=== PATIENT | female | born 1965 | race African-American/Black ===

== ENCOUNTER → 2016-12-06 | Outpatient (CLI) | payer OTHER ==
--- NOTE | 2016-12-06 13:10 | WOMENS IMAGING REPORT ---
EXAM DESCRIPTION: LEFT DIAGNOSTIC MAMMO W/CAD COMPLETED DATE/TIME: 12/06/2016 9:16 am REASON FOR STUDY: ABNORMAL MAMMO R92.8 OTH ABN AND INCONCLUSIVE FINDINGS ON DX IMAGING OF CASEY COMPARISON: Bilateral screening 10/13/2016 TECHNIQUE: Magnification craniocaudal and mediolateral oblique images of the breast recorded with di gital acquisition. Left breast 90 mediolateral view LIMITATIONS: None. FINDINGS: BREAST: Left MASSES: No suspicious masses. CALCIFICATIONS: There are 2 groups of punctate calcifications in the left breast, similar in size sha pe and density. 1 group of calcifications is left breast 6 o'clock position 5 cm from the nipple, th e other group of calcifications is laterally at about the 3 to 4 o'clock position 6 cm from the nippl e. These are indeterminate for malignancy. Because these clusters are very similar in characteristi cs, stereotactic biopsy of either the 6 o'clock position or 3 to 4 o'clock position calcifications is recommended. ARCHITECTURAL DISTORTION: None. DEVELOPING DENSITY: None. ASYMMETRY: None noted. OTHER: No other significant findings. Read with the assistance of CAD. .[facility] - R2 Cenova Version 1.3 .[facility] - R2 Cenova Version 1.3 .[facility] - R2 Cenova Version 2.4 .[facility] - R2 Cenova Version 2.4 .[facility] - R2 Color Artist Version 9.2 Stereotactic biopsy was discussed with the patient at the time of mammography. She understands the c alcifications require biopsy and she is amenable to stereotactic core biopsy left breast. IMPRESSION: Left breast microcalcifications indeterminate for malignancy. BREAST DENSITY: b. There are scattered areas of fibroglandular density. BIRAD: 4 Suspicious. Biopsy should be considered. RECOMMENDATION: RECOMMENDED FOLLOW UP: Left breast stereotactic biopsy recommended for calcification s SPECIFIC INTERVENTION/IMAGING/CONSULTATION RECOMMENDED:As above COMMUNICATION:These findings were discussed with the patient and she is agreeable to biopsy. These r esults were also discussed with ALEXEY Tomas 1300 hours 12/06/2016. COMMENT: The patient has been notified of the results by letter per MQSA requirements. Additional no tification policies are in place for contacting patient with suspicious or incomplete findings. Quality ID #[id number]: The [employer] recommends an annual screening mammogram for women aged 40 years or over. This facility utilizes a reminder system to ensure that all patients receive reminder letters, and/or direct phone calls for appointments. This includes reminders for routine scr eening mammograms, diagnostic mammograms, or other Breast Imaging Interventions when appropriate. Th is patient will be placed in the appropriate reminder system. The [employer] (ACR) has developed recommendations for screening MRI of the breast s in certain patient populations, to be used in conjunction with mammography. Breast MRI surveillanc e may be appropriate for women with more than 20% lifetime risk of developing breast cancer as deter mined by genetic testing, significant family history of the disease, or history of mantle radiation f or Hodgkins Disease. ACR Practice Guidelines 2008. TECHNICAL DOCUMENTATION: FINDING NUMBER: (1) ASSESSMENT: (1) JOB ID: [id number] [employer]- All Rights Reserved
== END ==
LOC: WI 08:02
PROVIDERS: ATTEND Physician Assistant
DX: R92.8 Other abnormal and inconclusive findings on diagnostic imaging of breast (principal)
CPT/HCPCS: G0206-52

== ENCOUNTER → 2016-12-11 | Outpatient (CLI) | payer OTHER ==
--- NOTE | 2016-12-11 17:03 | RADIOLOGY REPORT (SQ) ---
EXAM DESCRIPTION: CHEST PA/LATERAL COMPLETED DATE/TIME: 12/11/2016 4:52 pm REASON FOR STUDY: CHEST PAIN COMPARISON: None. EXAM PARAMETERS: NUMBER OF VIEWS: two views TECHNIQUE: Digital Frontal and Lateral radiographic views of the chest acquired. RADIATION DOSE: NA LIMITATIONS: none FINDINGS: LUNGS AND PLEURA: No opacities, masses or pneumothorax. No pleural effusion. MEDIASTINUM AND HILAR STRUCTURES: No masses or contour abnormalities. HEART AND VASCULAR STRUCTURES: Heart normal size. No evidence for failure. BONES: No acute findings. HARDWARE: None in the chest. OTHER: No other significant finding. IMPRESSION: NO SIGNIFICANT RADIOGRAPHIC FINDING IN THE CHEST. TECHNICAL DOCUMENTATION: JOB ID: [id number] [employer]- All Rights Reserved
== END ==
LOC: OD 16:39
PROVIDERS: ATTEND Physician Assistant
DX: R07.9 Chest pain, unspecified (principal)
CPT/HCPCS: 71020

== ENCOUNTER → 2016-12-19 | Day surgery (SDC) | payer OTHER ==
[~2016-12-19] MED LIST: LIDOCAINE 1%/EPINEPHRINE INJ 20 ML VIAL ONE
--- NOTE | 2016-12-29 17:20 | RADIOLOGY REPORT (SQ) ---
EXAM DESCRIPTION: STEREO BREAST BX; LEFT DIG DX MAMMO NO CHG COMPLETED DATE/TIME: 12/19/2016 10:55 am REASON FOR STUDY: OTHER ABNORMAL AND INCONCLUSIVE FINDINGS ON DIAGNOSTIC IMAGING OF BREAST; LEFT CASEY AST MICROCALCIFICATIONS; R92.8 OTH ABN AND INCONCLUSIVE FINDINGS ON DX IMAGING OF CASEY COMPARISON: MAMMOGRAMS 10/13/2016, [facility] Diagnostic mammograms 12/06/2016 here TECHNIQUE: Vacuum-assisted stereotactic-guided biopsy of the lesion in the left breast. Serial progr ess stereotactic and single digital images acquired. PROCEDURE: The procedure was discussed with the patient, including possible complications such as bleeding, infection, nondiagnostic sample or possible findings such as atypical ductal hyperplasia wh ich would require additional surgery. Possible clip placement was explained. The patient agreed t o the procedure. The patient was placed prone on the stereotactic table. The calcifications of concern in the retroa reolar region in the breast was localized stereotactically. The skin of the breast was prepped in st erile fashion. Superficial and deep local anesthesia was provided. A small incision was made in e skin and the biopsy probe was advanced to the target. Using the vacuum-assisted core biopsy device, multiple core specimens were obtained. Continuous low dose infusion of local anesthesia was used during the procedure. A specimen radiograph was obtained. The radiograph demonstrated calcifications of concern in the bio psy tissue. Using [id number]-tg-xkyktkjc technique a pellet clip was deployed at the biopsy site. Mammographic image confirmed presence of the clip. The probe was then removed and hemostasis obtained with manua l compression. A compression bandage was applied. Postoperative instructions were explained to e patient. POST-PROCEDURE TWO VIEW DIGITAL MAMMOGRAM: An additional two view mammogram was recorded in the [facility] mammographic suite. Marker clip is present at the biopsy site. Please note that there are 2 ot her clusters of microcalcifications which were similar to the biopsied calcifications, in the deep ce ntral breast and lateral left breast 3 o'clock position LIMITATIONS: None. FINDINGS: PATHOLOGY: Ductal carcinoma in situ, low grade solid tiny with microcalcifications. Negat porfirio for invasive malignancy. CONCORDANT: Yes. POST PROCEDURE MAMMOGRAMS FOR MARKER PLACEMENT: Yes IMPRESSION: SUCCESSFUL STEREOTACTIC-GUIDED BIOPSY OF THE LESION IN THE LEFT BREAST. BIOPSY RESULTS ARE CONCORDANT WITH IMAGING FINDINGS. FINDINGS WERE DISCUSSED WITH LEVY GAMING, Sunday 7, 1300 HOURS FOLLOW-UP: APPROPRIATE FOLLOWUP FOR BIOPSY RESULTS OF MALIGNANCY. NOTIFICATION: FINDINGS WERE DISCUSSED WITH LEVYJORDAN GAMING, Sunday12/22/2016, 1300 HOURS BI-RADS 6, KNOWN MALIGNANCY. APPROPRIATE ACTION SHOULD BE TAKEN COMMENT: Patient medication list reviewed: Yes- Quality ID# [id number]:Eligible professional attests to doc umenting in the medical record they obtained, updated, or reviewed the patient's current medications. TECHNICAL DOCUMENTATION: JOB ID: [id number] [employer]- All Rights Reserved
== END ==
LOC: RAD 08:38
PROVIDERS: ATTEND Physician Assistant
PROC: 0HBT3ZX Excision of Right Breast, Percutaneous Approach, Diagnostic (ICD-10-PCS; principal; 2016-12-19)
DX: D05.12 Intraductal carcinoma in situ of left breast (principal); R92.0 Mammographic microcalcification found on diagnostic imaging of breast; M19.90 Unspecified osteoarthritis, unspecified site; E03.9 Hypothyroidism, unspecified; E78.5 Hyperlipidemia, unspecified; E11.8 Type 2 diabetes mellitus with unspecified complications; R07.9 Chest pain, unspecified
CPT/HCPCS: 88342 ×2; 88341 ×2; 88305 ×2; 19081; J3490

== ENCOUNTER → 2017-01-05 | Outpatient (CLI) | payer OTHER ==
--- NOTE | 2017-01-05 13:15 | RADIOLOGY REPORT (SQ) ---
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 RENAL FUNCTION: GFR > 60. TECHNIQUE: MR imaging performed with a dedicated breast coil. Pre contrast T1 and T2 weighted images . Pre contrast and post contrast enhanced T1 weighted images with fat saturation. Subtraction images, 3D thick and thin MIPS, and kinetic analysis performed on an independent workstat ion. (Fresh Direct workstation) Magnet strength: 1.5 T LIMITATIONS: Patient vomited after the contrast bolus. Initial post contrasted images were obtained about 3 minutes after the contrast infusion was completed FINDINGS: BREAST DENSITY: b. There are scattered areas of fibroglandular density. BACKGROUND PARENCHYMAL ENHANCEMENT:Minimal. RIGHT BREAST: There is a stereotactic biopsy clip in the left breast 6 o'clock position, about 4 to 5 cm from the nipple. Biopsy at this site yielded a diagnosis of ductal carcinoma in situ. No enhan cing or suspicious masses. No clumped, regional/segmental ductal enhancement. However, there was a sub optimal contrast bolus. Few benign tiny less than 7 mm breast parenchymal cysts are present CHEST WALL: Normal tissue planes. No abnormal internal mammary nodes. AXILLA: Normal axillary and retro-pectoral nodes. LEFT BREAST:No enhancing or suspicious masses. No clumped, regional/segmental ductal enhancement. However, there was a suboptimal contrast bolus. Few benign less than 5 mm breast parenchymal cysts a re present. CHEST WALL: Normal tissue planes. No abnormal internal mammary nodes. AXILLA: Normal axillary and retro-pectoral nodes. OTHER:No identified liver, bone, or lung lesions. No other significant incidental findings. IMPRESSION: No MRI evidence of invasive breast malignancy for significant axillary adenopathy. BIRAD: RIGHT BREAST: 6 Known biopsy-proven malignancy. Appropriate action should be taken. LEFT BREAST: 2 Benign findings. RECOMMENDATION: RECOMMENDED FOLLOW-UP: As per Dr. Escobar TECHNICAL DOCUMENTATION: JOB ID: [id number]- All Rights Reserved
== END ==
LOC: RAD 09:58
PROVIDERS: ATTEND Surgery
DX: D05.12 Intraductal carcinoma in situ of left breast (principal)
CPT/HCPCS: 82565; A9576; C8906; 77059

== ENCOUNTER → 2017-01-17 | Day surgery (SDC) | payer OTHER ==
[~2017-01-17] MED LIST changes: +LIDOCAINE 2% INJ (20 MG/ML) 20 ML MDV ONE
--- NOTE | 2017-01-23 17:36 | RADIOLOGY REPORT (SQ) ---
EXAM DESCRIPTION: STEREO BREAST BX; LEFT DIG DX MAMMO NO CHG COMPLETED DATE/TIME: 01/17/2017 12:47 pm; 01/17/2017 12:48 pm REASON FOR STUDY: INTRADUCTAL CARCINOMA IN SITU OF BREAST; LEFT BREAST POST STEREO D05.12 INTRADUCT AL CARCINOMA IN SITU OF LEFT BREAST COMPARISON: Previous stereotactic biopsy left breast 12/19/2016 TECHNIQUE: Vacuum-assisted stereotactic-guided biopsy of the calcifications laterally in the left br east. Serial progress stereotactic and single digital images acquired. PROCEDURE: The procedure was discussed with the patient, including possible complications such as bleeding, infection, nondiagnostic sample or possible findings such as atypical ductal hyperplasia wh ich would require additional surgery. Possible clip placement was explained. The patient agreed t o the procedure. The patient was placed prone on the stereotactic table. The lesion in the breast was localized ster eotactically. The skin of the breast was prepped in sterile fashion. Superficial and deep local an esthesia was provided. A small incision was made in the skin and the biopsy probe was advanced to t he target. Using the vacuum-assisted core biopsy device, multiple core specimens were obtained. Continuous low dose infusion of local anesthesia was used during the procedure. A specimen radiograph was obtained. The radiograph demonstrated calcifications of concern in the bio psy tissue. Using htckiyre-po-fkklospw technique a pellet clip was deployed at the biopsy site. Mammographic image confirmed presence of the clip. The probe was then removed and hemostasis obtained with manua l compression. A compression bandage was applied. Postoperative instructions were explained to th e patient. POST-PROCEDURE TWO VIEW DIGITAL MAMMOGRAM: An additional two view mammogram was recorded in the [facility] mammographic suite. Marker clip is present at the biopsy site. LIMITATIONS: None. FINDINGS: PATHOLOGY: Today's biopsy in the left lateral breast for microcalcification yields a benig n diagnosis CONCORDANT: Yes. POST PROCEDURE MAMMOGRAMS FOR MARKER PLACEMENT: Yes IMPRESSION: SUCCESSFUL STEREOTACTIC-GUIDED BIOPSY OF THE LESION IN THE LEFT BREAST. BIOPSY RESULTS ARE CONCORDANT WITH IMAGING FINDINGS. Biopsy of microcalcifications laterally in the left breast yie lded a benign diagnosis FOLLOW-UP: As per Dr. Escobar. Lumpectomy at the 6 o'clock position, prior stereotactic biopsy left breast 12/19/2016 yielded a diagnosis of DCIS NOTIFICATION: THE PATIENT HAS BEEN PERSONALLY NOTIFIED OF THE RESULTS BY THE BREAST INTERVENTIONAL TE AM. ADDITIONAL INTERVENTION, IF NEEDED, HAS BEEN SCHEDULED. COMMENT: Patient medication list reviewed: Yes- Quality ID# [id number]:Eligible professional attests to doc umenting in the medical record they obtained, updated, or reviewed the patient's current medications. TECHNICAL DOCUMENTATION: JOB ID: [id number] [employer]- All Rights Reserved
== END ==
LOC: RAD 10:12
PROVIDERS: ATTEND Surgery
PROC: 0HBU3ZX Excision of Left Breast, Percutaneous Approach, Diagnostic (ICD-10-PCS; principal; 2017-01-17)
DX: D05.12 Intraductal carcinoma in situ of left breast (principal)
CPT/HCPCS: 88305 ×2; 19081; J3490

== ENCOUNTER 2017-01-24 08:06 | Day surgery (SDC) | payer OTHER ==
[~2017-01-24 08:06] MED LIST changes: +CEFAZOLIN 1 GM/D5W RTU 1 GM/50 ML RTUPB IV PRN; -LIDOCAINE 1%/EPINEPHRINE INJ 20 ML VIAL ONE; -LIDOCAINE 2% INJ (20 MG/ML) 20 ML MDV ONE; +NORMAL SALINE 1000 ML 1,000 ML IV PRN
[2017-01-24] MEDS ORDERED: ONDANSETRON HCL INJ/PF 4 MG/2 ML SDV ONE (10:25)
[2017-01-24] MEDS ORDERED: SUCCINYLCHOLINE CHLORIDE INJ 200 MG/10 ML VIAL ONE (10:25)
[2017-01-24] MEDS ORDERED: GLYCOPYRROLATE INJ 0.4 MG/2 ML VIAL ONE (10:25)
[2017-01-24] MEDS ORDERED: DEXAMETHASONE SOD PHOSPHATE INJ 4 MG/1 ML VIAL ONE (10:25)
[2017-01-24] MEDS ORDERED: METOCLOPRAMIDE HCL INJ/PF 10 MG/2 ML SDV ONE (10:25)
[2017-01-24] MEDS ORDERED: LIDOCAINE 2% INJ-PF (20 MG/ML) 2 ML AMPUL ONE (10:25)
[2017-01-24] MEDS ORDERED: NEOSTIGMINE METHYLSULFATE 10 MG/10 ML VIAL ONE (10:25)
[2017-01-24] MEDS ORDERED: KETOROLAC TROMETHAMINE 60 MG/2 ML SDV ONE (10:25)
[2017-01-24] MEDS ORDERED: ROCURONIUM BROMIDE INJ 50 MG/5 ML VIAL IV ONE (10:25)
--- NOTE | 2017-01-24 11:46 | PDOC PROGRESS REPORT ---
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 Patient interviewed and examined formal consult to follow. Note that the patient has no coronary artery disease, and in the past has had noncardiac chest pain.. She has a history of underactive thyroid not on any medication, and is a prediabetic. There is no history of congestive heart failure. Her EKG is within normal limits. Her echo was normal with trace physiological tricuspid regurgitation and trace physiological mitral regurgitation with normal left ventricular wall motion wall thickness chamber size and ejection fraction of 65%. She has normal right ventricular systolic pressure of 22 mmHg. Impression: 1 Prediabetes. 2. Underactive thyroid not on replacement. 3. Intraductal carcinoma in situ of left breast for surgery 4. Preoperative cardiac risk assessment for this breast surgery. The patient will be at mild/acceptable cardiac risk for this procedure under general anesthesia. This has been discussed with the patient the echo and EKG findings have also been discussed with the patient. We will follow with you formal consult to follow. Thank you end of dictation.
[2017-01-24 12:17] LABS: HEMATOCRIT 40.2 % (36.0-47.0); HGB HCT DIFFERENCE 1.8; MEAN CORPUSCULAR HGB CONC 34.7 g/dL (32.0-36.0); MEAN CORPUSCULAR VOLUME 89 fl (80-97); RED BLOOD COUNT 4.51 10^6/uL (3.72-5.28); RED CELL DISTRIBUTION WIDTH 12.9 % (11.5-14.0); WHITE BLOOD COUNT 9.9 10^3/uL (4.0-10.5)
[2017-01-24] MEDS ORDERED: LIDOCAINE 2% INJ (20 MG/ML) 20 ML MDV ONE (12:58)
--- NOTE | 2017-01-24 13:19 | RADIOLOGY REPORT (SQ) ---
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 RADIONUCLIDE AND DOSE: 126 microcuries TC-99mtilmanocept - Lymph[employer]ek. The route of agent administration: Subcutaneous in the skin. TECHNIQUE: The skin of the left breast was prepped in sterile fashion. The radiopharmaceutical was administered in equally divided doses in the periareolar breast. LIMITATIONS: None. FINDINGS: Images demonstrate activity at the injection site. There is also a focal area of activity in the left axilla consistent with sentinel lymph node. IMPRESSION: ADMINISTRATION OF RADIOPHARMACEUTICAL FOR SENTINEL LYMPH NODE EVALUATION. TECHNICAL DOCUMENTATION: JOB ID: [id number] [employer]- All Rights Reserved
--- NOTE | 2017-01-24 13:22 | EKG REPORT ---
SEVERITY:- NORMAL ECG - SINUS RHYTHM : Confirmed by: Madi Ball MD 24-Jan-2017 13:21:37
[2017-01-24] MEDS ORDERED: LIDOCAINE 4% TRANSPARENT DRESSING 5 GM KIT TP PRN (13:57)
[2017-01-24] MEDS ORDERED: MICROFIBRILLAR COLLAGEN 1 GM PACK ONE (14:24)
[2017-01-24] MEDS ORDERED: LIDOCAINE 1%/EPINEPHRINE INJ 20 ML VIAL ONE ×2 (14:24)
[2017-01-24] MEDS ORDERED: EPHEDRINE SULFATE INJ 50 MG/1 ML AMPULE ONE (14:44)
[2017-01-24] MEDS ORDERED: FENTANYL CITRATE INJ/PF 100 MCG/2 ML AMPUL ONE (14:44)
[2017-01-24] MEDS ORDERED: MIDAZOLAM 2 MG/2 ML INJ ONE (14:44)
[2017-01-24] MEDS ORDERED: DEXMEDETOMIDINE INJ 80 MCG/20 ML VIAL IV ONE (14:45)
[2017-01-24] MEDS ORDERED: HYDROMORPHONE HCL INJ/PF 2 MG/ML AMPULE ONE (14:45)
[2017-01-24] MEDS ORDERED: ACETAMINOPHEN 100 ML IV ONE (14:45)
[2017-01-24] MEDS ORDERED: PROPOFOL INJ 200 MG/20 ML VIAL IV ONE (14:45)
[2017-01-24] MEDS ORDERED: METHYLENE BLUE 50 MG/10 ML AMPULE ONE (14:56)
--- NOTE | 2017-01-24 16:26 | Operative Report ---
Operative Report DATE OF SURGERY: 01/24/17 PREOPERATIVE DIAGNOSIS: DCIS localized to inferior aspect left breast, 5 cm from nipple POSTOPERATIVE DIAGNOSIS: Same OPERATION: 1. Needle localized left open breast biopsy for DCIS, 6 o'clock position, 4 cm from the nipple. 2. [place] lymph node biopsy left axilla 1 using dual mapping technique SURGEON: DARREL THAKKAR 1ST HUMAN RELATIONS PROFESSOR: BRIAN SAM ANESTHESIA: GA TISSUE REMOVED OR ALTERED: Open left breast biopsy with needle and wire, dumbbell-shaped clip marker and microcalcifications; sentinel lymph node cluster left axilla COMPLICATIONS: None ESTIMATED BLOOD LOSS: Scant INTRAOPERATIVE FINDINGS: See below PROCEDURE: The patient was initially brought into ambulatory surgery, then taken to the radiology suite where she underwent lymphoscintigraphy of the left breast and axilla. There was intermediate strength uptake in the left axilla consistent with successful node mapping. The patient had known DCIS left breast 6 o'clock position following stereotactic biopsy with the dumbbell-shaped clip marker placement; the patient subsequently underwent stereotactic biopsy with a cylindrical marker placement of a more cephalad and laterally identified cluster of microcalcifications which revealed no evidence of DCIS, benign findings only. Therefore we elected to proceed with needle localized open biopsy of the known DCIS in the inferior aspect of the patient's left breast 6 o'clock position approximately 4 cm from the nipple. This was discussed with Dr. Perez, radiologist as well as Dr. Good, radiologist. The patient underwent needle localization with wire placement, and then was taken to the main operating room where general anesthesia was induced. Left arm was abducted, and the left breast exposed. Needle and wire were clipped 1 cm beyond the skin edge. We now proceeded to inject 2-1/2 cc of full-strength methylene blue into the patient's left breast, air areolar border, 2 o'clock position, intradermal. The left breast was massaged, for 5 minutes, then the left breast and axilla prepped and draped in sterile fashion. Surgical plan and surgical timeout were conducted. We proceeded with left breast lumpectomy AKA breast conserving surgery first. The localized needle and wire into the patient's breast from the anterior lateral position, with the tip oriented posteriorly in relation to the clip marker. We therefore planned a 4-1/2-5 cm incision, in for area volar, oriented horizontally skin was anesthetized 1% plain lidocaine. Incision was made as described, incorporating the needle and wire in the lateral aspect of the incision. A moderate sized lumpectomy specimen was now generated using electrocautery. The specimen approximately 5 x 5 x 7 cm and incorporated the needle. Specimen was marked with a long suture in the lateral position and a short suture in the superior position; the needle and wire into the specimen from the left anterior lateral position. There was no gross evidence of malignancy in the cut surface of the lumpectomy specimen. Real-time we obtained a portable radiograph of the specimen which revealed the wire, needle, clipped, dumbbell shaped, and microcalcifications. We felt we did successfully accomplish the objective with regards to the left breast lumpectomy. To reiterate, this was a very small cluster of microcalcifications in the center of the specimen. No intraoperative frozen section or pathologic interpretation was sought. The lumpectomy cavity was inspected for bleeding there was none. Wound closed with 3-0 Vicryl. We now turned our attention to the left axilla. Area of increased activity using the neoprobe was identified in the lower left axillary region. Skin was anesthetized with 1% plain lidocaine. A 2 cm incision was made, horizontally oriented. We proceeded with sentinel lymph node biopsy 1. The first lymph node identified was hot and blue with an in vivo count of approximately 13,000 and an ex vivo count of approximately 8332. The specimen was labeled as level 1 , blue and hot and sent to pathology. Grossly it appeared to contain more than one lymph node. We returned to the operative bed and found no significant persisting radioactivity in the axilla. Therefore we concluded that the sentinel node biopsy portion of the procedure was finished. Hemostasis was achieved with electrocautery, wound closed with 3-0 Vicryl. Both wounds closed with Dermabond glue. Patient tolerated the procedure well. She was extubated recorded and taken to the recovery room in stable condition. The physician certified pharmacist assistant, Ms. Quinonez, provided assistance during this case by: Assisting , retracting tissue, instillation of local anesthesia and closure of skin incisions.
--- NOTE | 2017-01-24 16:27 | RADIOLOGY REPORT (SQ) ---
EXAM DESCRIPTION: BREAST SPECIMEN COMPLETED DATE/TIME: 01/24/2017 4:15 pm REASON FOR STUDY: LEFT BREAST SPECIMEN D05.12 INTRADUCTAL CARCINOMA IN SITU OF LEFT BREAST COMPARISON: None. TECHNIQUE: Specimen radiograph from breast procedure performed in the operating room. LIMITATIONS: None. FINDINGS: Specimen radiograph from breast procedure performed in the operating room. Please see procedure note for details and final pathology. IMPRESSION: Specimen radiograph. TECHNICAL DOCUMENTATION: JOB ID: [id number]
--- NOTE | 2017-01-24 16:28 | PDOC DISCHARGE SUMMARY ---
Discharge Summary (SDC) - Discharge Final Diagnosis: Left breast cancer Date of Surgery: 01/24/17 Discharge Date: 01/24/17 Condition: Stable Treatment or Instructions: [facility] [address], [place] [address] Care Instructions Following Your Lumpectomy Activities: Resume normal activities when you feel comfortable. It is best to remain as active as possible to speed your recovery. It is common to experience some fatigue after surgery and you may find that short naps are helpful. Avoid strenuous activity such as weight lifting, tennis, etc at your surgical site for two weeks. Perform gentle arm exercises daily and do not favor your operative arm to due increased risk of mobility issues postoperatively. No driving for 7 days after surgery. Do not drive if you are taking pain medication other than Tylenol or Ibuprofen. No swimming, tub baths or soaking in a hot tub for 4 weeks. There are no dietary restrictions. Do not smoke as this impairs wound healing. Surgical Site care: You may shower 24 hours after surgery to include washing the wound with soap and water using your hands. Do not scrub the incision. Pat the area dry with a towel. You do not need to recover the wound although some patients find that they feel more comfortable using a light dressing for a few days to absorb any minimal drainage which may occur. Do not remove skin glue. Leave skin glue intact until it falls away on its own. Medications: You may take Toradol 10mg one pill every six hours as needed for pain. Follow-up: Call our office at to make a follow-up appointment in 10-14 days. Your doctor will call to discuss the pathology report with you as soon as it is available. Concerns: If you had a sentinel lymph node biopsy with your lumpctomy, your urine may have a greenish discoloration. This is normal and will resolve as the blue dye slowly leaves your system. Some bruising may occur and will go away over time. If you have a fever of 101.5 or greater, chills, redness at the incision site , excessive drainage from your wound or severe pain not relieved by pain medication, call your doctor. A physician is available 24 hours a day 7 days a week in addition to regular office hours. If problems arise after normal office hours please call the hospital at . Please call if you have any questions or concerns. Prescriptions: Oxycodone HCl/Acetaminophen [Percocet 5-325 mg Tablet] 1 tab PO Q6 PRN #20 tab PRN Reason: Referrals: KASEY COVINGTON MD [Primary Care Provider] - Discharge Diet: As Tolerated Discharge Activity: Activity As Tolerated, Walk Frequently Report the Following to Your Physician Immediately: Fever over 101 Degrees, Unusual Bleeding, Redness, Swelling, Warmth, Drainage-Foul Smelling
[2017-01-24] MEDS ORDERED: OXYCODONE-ACETAMINOPHEN 5-325 MG TABLET PO PRN (16:29)
[2017-01-24] MEDS ORDERED: ONDANSETRON HCL INJ/PF 4 MG/2 ML SDV IV PRN ×2 (16:29→17:14)
[2017-01-24] MEDS: FENTANYL CITRATE INJ/PF 100 MCG/2 ML AMPUL ONE ×2 (16:55→17:00)
[2017-01-24] MEDS ORDERED: FENTANYL CITRATE INJ/PF 100 MCG/2 ML AMPUL IV PRN ×3 (17:14)
[2017-01-24] MEDS ORDERED: MEPERIDINE HCL/PF INJ 25 MG/1 ML DISP.SYRIN IV PRN (17:14)
[2017-01-24] MEDS ORDERED: DIPHENHYDRAMINE HCL 50 MG/ML VIAL IV PRN (17:14)
[2017-01-24] MEDS ORDERED: PROMETHAZINE HCL INJ 25 MG/1 ML VIAL IV PRN ×2 (17:14)
[2017-01-24] MEDS ORDERED: MORPHINE SULFATE 10 MG/ML INJ IV PRN (17:14)
--- NOTE | 2017-01-24 17:51 | XCELERA REPORT ---
[address] [address] Transthoracic Echocardiogram Report Name: GALO CHAMBERS Age: 51 yrs Gender: Female : 1965 Patient Status: Outpatient Patient Location: [facility] Study Date: 01/24/2017 08:28 AM Height: 63 in Weight: 219 lb BSA: 2.0 m2 Procedure: A two-dimensional transthoracic echocardiogram with color flow and Doppler was performed. The study was technically adequate with some images being suboptimal in quality. Reason For Study: Chest Pain / Pre-op Cardiac Risk Assessment History: Chest Pain / Pre-op Cardiac Risk Assessment. Ordering Physician: DARREL THAKKAR Performed By: Nunu Fletcher Interpretation Summary The left ventricle is normal in size. There is normal left ventricular wall thickness. LV EF is 65% Left ventricular systolic function is normal. Doppler measurements suggest normal left ventricular diastolic function The left ventricular wall motion is normal. There is no thrombus. There is no ventricular septal defect visualized. The right ventricle is normal in size and function. The right atrium is normal. The left atrial size is normal. There is no evidence of mitral valve prolapse. There is no vegetation seen on the mitral valve. There is a trace amount of mitral regurgitation There is no aortic valvular vegetation. There is no aortic valve stenosis There is no LVOT obstruction. No aortic regurgitation is present. There is no tricuspid stenosis. Right ventricular systolic pressure is normal. RVSP is 22 mm of Hg , with RA mean of 5. There is no pulmonic valvular stenosis. There is no pulmonic valvular regurgitation. The aortic root is normal size. There is no pericardial effusion. MMode/2D Measurements & Calculations RVDd: 2.0 cm LVIDd: 3.6 cm FS: 32.8 % Ao root diam: 3.3 cm IVSd: 1.0 cm LVIDs: 2.4 cm EDV(Teich): 56.1 ml LVPWd: 0.99 cmESV(Teich): 21.2 ml Ao root area: 8.4 cm2 EF(Teich): 62.2 % LA dimension: 2.9 cm LVOT diam: 2.1 cm LVOT area: 3.4 cm2 Doppler Measurements & Calculations MV E max poonam: MV P1/2t max poonam: Ao V2 max: LV V1 max P.5 cm/sec 54.8 cm/sec 127.6 cm/sec 5.5 mmHg MV A max poonam: MV P1/2t: 54.7 msec Ao max PG: LV V1 max: 51.1 cm/sec MVA(P1/2t): 4.0 cm2 6.5 mmHg 117.6 cm/sec MV E/A: 1.1 MV dec slope: EDSON(V,D): 3.1 cm2 293.9 cm/sec2 PA V2 max: TR max poonam: 65.6 cm/sec 207.4 cm/sec PA max PG: TR max P.2 mmHg 1.7 mmHg Left Ventricle The left ventricle is normal in size. There is normal left ventricular wall thickness. LV EF is 65%. Left ventricular systolic function is normal. Doppler measurements suggest normal left ventricular diastolic function. The left ventricular wall motion is normal. There is no thrombus. There is no ventricular septal defect visualized. Right Ventricle The right ventricle is normal in size and function. Atria The right atrium is normal. The left atrial size is normal. The interatrial septum is intact with no evidence for an atrial septal defect. Mitral Valve There is no evidence of mitral valve prolapse. There is no vegetation seen on the mitral valve. There is no mitral valve stenosis. There is a trace amount of mitral regurgitation. Aortic Valve There is no aortic valvular vegetation. There is no aortic valve stenosis. There is no LVOT obstruction. No aortic regurgitation is present. Tricuspid Valve There is no tricuspid stenosis. There is a trace amount of tricuspid regurgitation. Right ventricular systolic pressure is normal. RVSP is 22 mm of Hg , with RA mean of 5. Pulmonic Valve There is no pulmonic valvular stenosis. There is no pulmonic valvular regurgitation. Great Vessels The aortic root is normal size. Effusions There is no pericardial effusion. : DARREL THAKAKR > Eva Easton
[2017-01-24 20:08] VITALS: BP 125/79
--- NOTE | 2017-01-25 11:05 | CONSULTATION REPORT E ---
Consultation Report NAME: GALO CHAMBERS : 1965 AGE: 51Y DATE: 01/24/2017 TO: ANNA LOPEZ M.D. FROM: DARREL THAKKAR M.D. Requesting Physician Note that the patient was seen at 11:21 a.m. A short note was done so that the patient could have surgery. REASON FOR CONSULTATION: 1. Patient for open left breast biopsy and sentinel lymph node biopsy. 2. Preoperative cardiac risk assessment in a patient with a history of prior chest pain. HISTORY OF PRESENT ILLNESS: Patient is a 51-year-old Afro-Congol[place] female with a history of left intraductal breast cancer, who is here for biopsy, and also biopsy of sentinel lymph node on the left side. The patient in the past has had some chest pain, which she states was fleeting and lasting a few seconds, and sharp in nature, in the front of the left chest. It was not related to exertion and it is not brought on by exertion. The patient denies any clear-cut anginal symptoms. There is no PND, orthopnea or leg edema. There are no palpitations. There is no leg edema. PAST MEDICAL HISTORY: Negative for hypertension. The patient is a prediabetic. She states that she has an underactive thyroid, but does not need replacement at this time. There is no history of asthma or COPD. No history of sleep apnea. No history of CAD, angina, congestive heart failure, palpitations, syncope. No PND, orthopnea or leg edema. There is no history of chronic kidney disease. There is no history of TIA or CVA. There is no history of seizures, headaches or migraines. FAMILY HISTORY: Negative for hypertension or CAD. SOCIAL HISTORY: The patient does not smoke. There is no history of ETOH abuse. ALLERGIES: 1. ASPIRIN. 2. IVP DYE. CODE STATUS: The patient is a FULL CODE. Her mother is her surrogate healthcare decision maker. REVIEW OF SYSTEMS: CONSTITUTIONAL: Denies any fever, chills or rigors. HEAD: Denies headaches or head injury. EYES: No history of amblyopia or diplopia. No history of amaurosis fugax. EARS: No history of hearing loss. No history of tinnitus. No history of recurrent ear infections. NOSE: No history of hay fever. No history of nasal polyps. No history of nosebleeds. MOUTH: No history of altered taste sensation. No history of ulcers in the mouth. No history of bleeding from the gums. THROAT: No odynophagia or dysphagia. No recurrent sore throats. SKIN: No history of skin rashes. No petechiae or ecchymosis. No history of yellowish discoloration of skin. No skin cancer. No psoriasis. NECK: No painful or painless enlargement of lymph nodes. No goiter. BREASTS: Diagnosis of left intraductal carcinoma. Patient for biopsy now. ARTHRITIS: History of chronic back pain, but no history of vascular disease. RENAL: No history of chronic kidney disease. No symptoms of hematuria, pyuria or dysuria. No symptoms of UTI. GASTROINTESTINAL: No history of GI bleed. No history of GERD. No history of peptic ulcer disease. CENTRAL NERVOUS SYSTEM: No history of TIA or CVA. No history of headaches or seizures. No gait imbalance. No sleep apnea. No migraines. PSYCHIATRIC: No history of anxiety or depression. No history of homicidal or suicidal ideation. VASCULAR: No history of calf or buttock claudication. No history of DVT. HEMATOLOGIC: No history of bleeding diathesis. No history of clotting disorders. ENDOCRINE: The patient is a prediabetic. She has an underactive thyroid, but is not on replacement. There is polydipsia or polyuria. There is no heat or cold intolerance. METABOLIC: The patient has obesity. No history of hyperlipidemia. PHYSICAL EXAMINATION: GENERAL: The patient is moderately obese, in no acute distress. VITAL SIGNS: Her pulse is 80 beats per minute. She is afebrile, with a temperature of 98.7 degrees Fahrenheit. Blood pressure is 130/76, respirations 18 per minute. O2 sat is 100% on room air. HEAD: Atraumatic, normocephalic. EYES: Pupils are equal, round, regular, reactive to light and accommodation. Extraocular movements are normal. There is no conjunctival pallor. There is no scleral icterus. EARS: Tympanic membranes are intact. External auditory canals are clear. There are no lesions. NOSE: There is no deviated nasal septum. There is no inflammation of the nasal mucous membranes. MOUTH: Mucous membranes of the mouth are moist. Tongue is moist. There are no ulcers. There is no bleeding from the gums. THROAT: There is no redness of the oropharynx. There are no exudates. SKIN: There are no skin rashes. There is no excoriation of the skin. There is no petechiae or ecchymosis. There are no lesions or rashes. NECK: Supple. There is no JVD. Carotids are equal. There is no bruit. There is no lymphadenopathy. There is no goiter. Trachea is central. LUNGS: Clear to auscultation and percussion. There is no chest wall tenderness. BREASTS: Not examined. HEART: S1, S2 heard. There is no S3 gallop. There is no S4 gallop. There is a systolic murmur at the left sternal border, at the apex. There is no rub. ABDOMEN: Soft, nontender. There is no hepatosplenomegaly. Bowel sounds are well-heard. EXTREMITIES: Femorals are slightly deep. Femorals are slightly diminished. There are no femoral bruits. Leg pulses are felt. There is no pedal edema. There is no cyanosis or clubbing. There is no DVT or cellulitis. There is no calf tenderness. CENTRAL NERVOUS SYSTEM: The patient is conscious, awake, alert, oriented x3, with no focal deficit. PSYCHIATRIC: The patient's judgment and insight are intact. Her affect is normal. DIAGNOSTIC STUDIES: The patient's EKG shows sinus rhythm within normal limits. The patient's echo is within normal limits, with physiological trace MR and TR and normal rate, with a systolic pressure of 22 mmHg. The patient's white count is 9900, hemoglobin is 14, hematocrit is 40.2, platelet count is 317,000. IMPRESSION: 1. UNDERACTIVE THYROID, NOT ON REPLACEMENT. 2. PREDIABETES. 3. INTRADUCTAL CARCINOMA IN-SITU OF LEFT BREAST FOR OPEN SURGICAL BIOPSY OF THE LEFT BREAST AND LYMPH NODE ENLARGEMENT. 4. MODERATE OBESITY. 5. NONCARDIAC CHEST PAIN. 6. PREOPERATIVE CARDIAC RISK ASSESSMENT FOR BREAST PROCEDURE/SURGERY: NOTE THAT THE PATIENT WOULD BE A MILD ACCEPTABLE CARDIAC RISK FOR THIS PROCEDURE UNDER GENERAL ANESTHESIA. The findings of the echo and the EKG have been discussed with the patient and discussed with the surgeon, Dr. Godinez. NOTE: The patient was seen at 11:41 a.m. and 40 minutes spent with patient, with more than 50% of time spent in direct patient care. Note that medical decision making was of moderate complexity. If the patient is stable postoperatively, she can be discharged at the discretion of the surgeon. Note that the patient's medications have been reviewed. She was only on painkillers. No other medications. DICTATING PHYSICIAN: ANNA LOPEZ M.D. [id number] PHY#: [id number] ID: [id number] JOB#: [id number] ACCT: [id number] cc:ANNA LOPEZ M.D. >
--- NOTE | 2017-01-30 12:39 | WOMENS IMAGING REPORT ---
EXAM DESCRIPTION: WIRE LOC MAMMO COMPLETED DATE/TIME: 01/24/2017 2:13 pm REASON FOR STUDY: LEFT BREAST NEEDLE LOC LEFT BREAST CANCER D05.12 INTRADUCTAL CARCINOMA IN SITU OF LEFT BREAST COMPARISON: 01/17/2017. TECHNIQUE: The biopsy marker in the left breast was localized mammographically using a grid marker. The skin of the breast was prepped in sterile fashion and local anesthesia was provided. The local ization needle was advanced to the target. The tip was positioned adjacent to the target and confirm ed with two orthogonal views. Surgical dye was not injected for this procedure. The wire was placed through the needle and the hook engaged. Post procedure mammogram demonstrates satisfactory position of the needle and wire. Specimen radiograph demonstrates the intact localization wire as well as the targeted lesion within t he biopsy specimen. LIMITATIONS: None. FINDINGS: Procedure as above. Pathology: Ductal carcinoma in situ. No invasive carcinoma. IMPRESSION: SUCCESSFUL NEEDLE LOCALIZATION OF THE LESION IN THE LEFT BREAST. FOLLOW-UP PER THE Sravanthi MUÑOZ'S SURGEON. TECHNICAL DOCUMENTATION: JOB ID: [id number] [employer]- All Rights Reserved
== END 2017-01-24 20:00 | disposition home or self-care (01) ==
LOC: OROUT 08:06
PROVIDERS: ATTEND Surgery
PROC: 07B60ZX Excision of Left Axillary Lymphatic, Open Approach, Diagnostic (ICD-10-PCS; 2017-01-24)
PROC: 0HBU0ZZ Excision of Left Breast, Open Approach (ICD-10-PCS; principal; 2017-01-24 13:30)
DX: D05.12 Intraductal carcinoma in situ of left breast (principal); E11.9 Type 2 diabetes mellitus without complications; E03.9 Hypothyroidism, unspecified; M19.90 Unspecified osteoarthritis, unspecified site; R07.89 Other chest pain; E66.9 Obesity, unspecified; Z88.6 Allergy status to analgesic agent; Z91.041 Radiographic dye allergy status
CPT/HCPCS: 36415; 85027; 88305 ×2; 88307 ×2; 93306; 78195; 93005; 93010; 19281; 76098; 19301; 38500; A9520; J2250; J3490 ×5; J0690; J1100; J1885; J3010; J2765; J1170; J0330; J2405; J2704; J0131; Q9968; 1610